=== PATIENT | male | born 1980 | race Caucasian/White ===

== ENCOUNTER 2020-09-10 19:57 | Emergency (ER) | payer MEDICAID ==
[~2020-09-10] VITALS: Ht 175.3 cm; Wt 108.9 kg
[2020-09-10] MEDS ORDERED: LATUDA40 MG PO (20:19)
[2020-09-10] MEDS ORDERED: ATIVAN0.5 MG PO (20:20)
[2020-09-10] MEDS ORDERED: BENZTROPINE MESY1 MG PO (20:20)
[2020-09-10] MEDS ORDERED: TESTONE CI200 MG/1 M IM (20:22)
[2020-09-10] MEDS ORDERED: GABAPENTIN300 MG PO (20:23)
--- OUTSIDE RECORDS SUMMARY | 2020-09-10 21:02 | XMS ---
PreManage Notification: CORI LOUIE Security [employer] Events No recent Security Events currently on file CRITERIA MET - [facility] - 3 Facilities in 90 Days - 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 ED/UCC VISIT TRACKING (12 MO.) 09/10/2020 19:59 HELDER [facility] TYPE: Emergency COMPLAINT: - ALLERGIC REACTION TO MEDICATION 09/04/2020 11:24 [facility] [place] [facility]: [facility] Care DIAGNOSES: - Medication Refill - Opioid dependence, uncomplicated 09/02/2020 11:03 Liban [facility] Yulia [place] TYPE: Emergency DIAGNOSES: - left pinky toe - Nondisplaced fracture of proximal phalanx of left lesser toe(s), initial encounter for closed fracture - Toe Injury 08/20/2020 16:08 Liban [facility] Yulia [place] TYPE: Emergency DIAGNOSES: - Adverse effect of unspecified drugs, medicaments and biological substances, initial encounter - medication reaction - Generalized anxiety disorder - Anxiety - Allergic Reaction 08/18/2020 16:00 Liban [place] TYPE: Urgent Care DIAGNOSES: - Establish Care 06/19/2020 13:03 [facility] WINDY RAMIRE[facility] TYPE: Emergency COMPLAINT: - Anxiety DIAGNOSES: - Panic Attack - Anxiety disorder, unspecified - Anxiety [facility] DIAGNOSES: - Unspecified fall, initial encounter - Contusion of left front wall of thorax, initial encounter - RIB INJURY 10/11/2019 06:31 Liban [facility] Yulia [place] TYPE: Emergency DIAGNOSES: - Nausea with vomiting, unspecified - Emesis - Bacterial foodborne intoxication, unspecified - emesis, stomach pains - Essential (primary) hypertension - Diarrhea, unspecified INPATIENT VISIT TRACKING (12 MO.) No inpatient visits to display in this time frame [email or web address]
== END 2020-09-10 21:41 | disposition home or self-care (01) ==
LOC: ED 19:57
DX: F41.9 Anxiety disorder, unspecified (principal); Z79.899 Other long term (current) drug therapy
CPT/HCPCS: 99283